=== PATIENT | female | born 1970 | race Caucasian/White ===

== ENCOUNTER 2017-11-22 06:07 | Inpatient (IN) | payer OTHER ==
[~2017-11-22 06:07] MED LIST: CEFAZOLIN 2 GM/50 ML (PMX) 50 ML IVPB
[2017-11-22] MEDS ORDERED: MIDAZOLAM 1 MG/ML 2 ML INJ (06:24)
[2017-11-22] MEDS ORDERED: GLYCOPYRROLATE 0.4 MG INJ (06:24)
[2017-11-22] MEDS ORDERED: NEOSTIGMINE 3 MG/3 ML SYRINGE (06:24)
[2017-11-22] MEDS ORDERED: ROCURONIUM 50 MG INJ (06:24)
[2017-11-22] MEDS ORDERED: FENTAnyl 50 MCG/ML VIAL ×2 (06:24→10:22)
[2017-11-22] MEDS ORDERED: PROPOFOL 20 ML (06:24)
[2017-11-22] MEDS ORDERED: LIDOCAINE 2% (SDV) 5 ML INJ (06:24)
[2017-11-22] MEDS ORDERED: NALOXONE (0.4 MG/ML) INJ IV (06:30)
[2017-11-22] MEDS ORDERED: morphine SULFATE/PF (10 MG/10 ML) INJ (06:31)
[2017-11-22] MEDS ORDERED: ONDANSETRON 4 MG INJ (06:32)
[2017-11-22] MEDS ORDERED: BUPIVACAINE 0.75%/DEXT (SPINAL) 2 ML INJ (06:32)
[2017-11-22] MEDS ORDERED: DEXAMETHASONE 4 MG/ML 1 ML INJ (06:32)
[2017-11-22] MEDS ORDERED: BUPIVACAINE 0.5%/EPI (SDV) 30 ML INJ (07:27)
[2017-11-22] MEDS ORDERED: LIDOCAINE 1%/EPI 30 ML INJ (07:27)
[2017-11-22] MEDS: LIDOCAINE 1%/EPI 30 ML INJ INJ (07:30)
[2017-11-22] MEDS ORDERED: SUCCINYLCHOLINE CHLORIDE 100 MG/5 ML SYG IV (07:47)
[2017-11-22] MEDS ORDERED: CEFAZOLIN 1 GM INJ (08:52)
[2017-11-22] MEDS ORDERED: FUROSEMIDE 20 MG INJ (11:33)
[2017-11-22] MEDS ORDERED: SUGAMMADEX SODIUM 200 MG/2 ML VIAL IV (11:36)
[2017-11-22] MEDS ORDERED: DIPHENHYDRAMINE 50 MG CAP PO (12:30)
[2017-11-22] MEDS ORDERED: HYDROCODONE/APAP (5/325) TAB PO (12:30)
[2017-11-22] MEDS ORDERED: ZOLPIDEM 5 MG TAB PO (12:30)
[2017-11-22] MEDS ORDERED: ONDANSETRON 4 MG INJ IV (12:30)
[2017-11-22] MEDS ORDERED: HYDROmorphONE 1 MG/5 ML IV SYRINGE IV (13:18)
[2017-11-22] MEDS ORDERED: KETOROLAC 15 MG INJ (13:18)
[2017-11-22] MEDS ORDERED: KETOROLAC 30 MG INJ (13:23)
[2017-11-22] MEDS: HYDROCODONE/APAP (5/325) TAB PO (13:27)
[2017-11-22] MEDS: KETOROLAC 30 MG INJ IV ×2 (13:27→23:50)
[2017-11-22 13:43] LABS: ADD MAN DIFF? NO
[2017-11-22 13:46] LABS: BASOPHILS % 0.1 % (0.0-2.0); EOSINOPHILS % 0.1 % (0.0-7.0); HEMATOCRIT 37.1 % (37.0-47.0); HEMOGLOBIN 12.4 g/dl (12.0-16.0); LYMPHOCYTES # 1.1 10^3/ul (0.8-2.9); LYMPHOCYTES % 7.6 % (15.0-51.0); MEAN CORPUSCULAR HEMOGLOBIN 28.6 pg (29.0-33.0); MEAN CORPUSCULAR HGB CONC 33.4 g/dl (32.0-37.0); MEAN CORPUSCULAR VOLUME 85.7 fl (82.0-101.0); MEAN PLATELET VOLUME 10.6 fl (7.4-10.4); MONOCYTE # 0.2 10^3/ul (0.3-0.9); MONOCYTES % 1.2 % (0.0-11.0); NEUTROPHIL # 13.5 10^3/ul (1.6-7.5); NEUTROPHILS % 90.5 % (39.0-77.0); PLATELET COUNT 243 10^3/UL (140-415); RED BLOOD COUNT 4.33 10^6/ul (4.20-5.40); RED CELL DISTRIBUTION WIDTH 13.1 % (11.5-14.5)
[2017-11-22 13:54] LABS: ANION GAP 14 (8-16); BLOOD UREA NITROGEN 9 mg/dl (7-20); CALCIUM 8.6 mg/dl (8.4-10.2); CARBON DIOXIDE 27 mmol/L (21-31); CHLORIDE 104 mmol/L (97-110); CREATININE 0.57 mg/dl (0.44-1.00); GLUCOSE 175 mg/dl (70-220); POTASSIUM 3.3 mmol/L (3.5-5.1); SODIUM 142 mmol/L (135-144)
[2017-11-22 14:00] LABS: HOLD TRANSMISSIONS 1
[2017-11-22 14:02] LABS: WHITE BLOOD COUNT 14.9 10^3/ul (4.8-10.8)
[2017-11-22] MEDS: LACTATED RINGER'S 1,000 ML IV ×2 (15:04→22:00)
[2017-11-22] MEDS ORDERED: ENOXAPARIN 40 MG/0.4 ML SYG SC (15:30)
[2017-11-22] MEDS: PIPER-TAZO 3.375 GM IV (PMX) 100 ML IVPB ×2 (17:47→23:48)
[2017-11-22] MEDS: VANCOMYCIN 750 MG in SOD CHLORIDE 0.9% 150 ML IVPB (18:23)
[2017-11-22] MEDS: METOCLOPRAMIDE 10 MG TAB PO ×2 (18:23→23:48)
[2017-11-22] MEDS: HYDROmorphONE 1 MG/ML SYG IV (18:36)
[2017-11-22] MEDS: VANCOMYCIN 1 GM 250 ML IVPB (20:41)
[2017-11-23] MEDS: LACTATED RINGER'S 1,000 ML IV (03:32)
[2017-11-23 05:39] LABS: ADD MAN DIFF? NO
[2017-11-23 05:48] LABS: WHITE BLOOD COUNT 10.7 10^3/ul (4.8-10.8)
[2017-11-23 05:48] LABS: BASOPHILS % 0.1 % (0.0-2.0); HEMATOCRIT 29.3 % (37.0-47.0); HEMOGLOBIN 9.6 g/dl (12.0-16.0); LYMPHOCYTES # 2.2 10^3/ul (0.8-2.9); LYMPHOCYTES % 20.4 % (15.0-51.0); MEAN CORPUSCULAR HEMOGLOBIN 28.3 pg (29.0-33.0); MEAN CORPUSCULAR HGB CONC 32.8 g/dl (32.0-37.0); MEAN CORPUSCULAR VOLUME 86.4 fl (82.0-101.0); MEAN PLATELET VOLUME 10.8 fl (7.4-10.4); MONOCYTE # 0.8 10^3/ul (0.3-0.9); NEUTROPHIL # 7.7 10^3/ul (1.6-7.5); PLATELET COUNT 233 10^3/UL (140-415); RED BLOOD COUNT 3.39 10^6/ul (4.20-5.40); RED CELL DISTRIBUTION WIDTH 13.4 % (11.5-14.5)
[2017-11-23 06:07] LABS: ANION GAP 9 (8-16); BLOOD UREA NITROGEN 10 mg/dl (7-20); CARBON DIOXIDE 29 mmol/L (21-31); CHLORIDE 106 mmol/L (97-110); CREATININE 0.64 mg/dl (0.44-1.00); SODIUM 140 mmol/L (135-144)
[2017-11-23] MEDS: METOCLOPRAMIDE 10 MG TAB PO ×3 (06:25→17:50)
[2017-11-23] MEDS: LEVOTHYROXINE 50 MCG TAB PO (06:25)
[2017-11-23] MEDS: PIPER-TAZO 3.375 GM IV (PMX) 100 ML IVPB ×3 (06:26→17:49)
[2017-11-23] MEDS: KETOROLAC 30 MG INJ IV ×3 (06:33→17:50)
[2017-11-23] MEDS: POTASSIUM CHLORIDE (SR) 10 MEQ TAB PO ×2 (09:23→20:52)
[2017-11-23] MEDS: VANCOMYCIN 1 GM 250 ML IVPB ×2 (09:23→20:55)
[2017-11-23] MEDS: ENOXAPARIN 40 MG/0.4 ML SYG SC (09:28)
[2017-11-23] MEDS ORDERED: BISACODYL (EC) 5 MG TAB PO (09:30)
[2017-11-23] MEDS: RANITIDINE 50 MG in SOD CHLORIDE 0.9% 50 ML IVPB ×2 (12:48→20:52)
[2017-11-23] MEDS: BISACODYL (EC) 5 MG TAB PO (20:52)
[2017-11-24] MEDS: METOCLOPRAMIDE 10 MG TAB PO ×4 (00:16→17:48)
[2017-11-24] MEDS: KETOROLAC 30 MG INJ IV ×4 (00:24→17:48)
[2017-11-24] MEDS: PIPER-TAZO 3.375 GM IV (PMX) 100 ML IVPB ×4 (00:25→17:47)
[2017-11-24] MEDS: LEVOTHYROXINE 50 MCG TAB PO (06:40)
[2017-11-24 08:41] LABS: ADD MAN DIFF? NO
[2017-11-24] MEDS: RANITIDINE 50 MG in SOD CHLORIDE 0.9% 50 ML IVPB ×2 (09:00→20:35)
[2017-11-24 09:06] LABS: WHITE BLOOD COUNT 8.5 10^3/ul (4.8-10.8)
[2017-11-24 09:06] LABS: BASOPHILS % 0.4 % (0.0-2.0); EOSINOPHILS # 0.2 10^3/ul (0.0-0.5); EOSINOPHILS % 1.9 % (0.0-7.0); HEMATOCRIT 30.3 % (37.0-47.0); HEMOGLOBIN 9.5 g/dl (12.0-16.0); LYMPHOCYTES # 2.8 10^3/ul (0.8-2.9); LYMPHOCYTES % 33.2 % (15.0-51.0); MEAN CORPUSCULAR HEMOGLOBIN 27.8 pg (29.0-33.0); MEAN CORPUSCULAR HGB CONC 31.4 g/dl (32.0-37.0); MEAN CORPUSCULAR VOLUME 88.6 fl (82.0-101.0); MEAN PLATELET VOLUME 11.5 fl (7.4-10.4); MONOCYTE # 0.6 10^3/ul (0.3-0.9); NEUTROPHIL # 4.9 10^3/ul (1.6-7.5); NEUTROPHILS % 57.1 % (39.0-77.0); PLATELET COUNT 202 10^3/UL (140-415); RED BLOOD COUNT 3.42 10^6/ul (4.20-5.40); RED CELL DISTRIBUTION WIDTH 13.8 % (11.5-14.5)
[2017-11-24 09:11] LABS: ANION GAP 9 (8-16); CARBON DIOXIDE 27 mmol/L (21-31); CHLORIDE 110 mmol/L (97-110); POTASSIUM 4.1 mmol/L (3.5-5.1); SODIUM 142 mmol/L (135-144)
[2017-11-24 09:17] LABS: POSITIVE DIFF @See below
[2017-11-24 09:24] LABS: VANCOMYCIN,TROUGH 9.2 ug/ml (10.0-20.0)
[2017-11-24] MEDS: VANCOMYCIN 1 GM 250 ML IVPB (11:30)
[2017-11-24] MEDS: HYDROCODONE/APAP (5/325) TAB PO ×2 (13:37→20:36)
[2017-11-24] MEDS: VANCOMYCIN 1.25 GM in SOD CHLORIDE 0.9% 250 ML IVPB (21:49)
[2017-11-25] MEDS: METOCLOPRAMIDE 10 MG TAB PO ×3 (00:27→12:13)
[2017-11-25] MEDS: PIPER-TAZO 3.375 GM IV (PMX) 100 ML IVPB ×2 (01:10→05:22)
[2017-11-25] MEDS: KETOROLAC 30 MG INJ IV ×3 (05:22→12:13)
[2017-11-25] MEDS: LEVOTHYROXINE 50 MCG TAB PO (07:43)
[2017-11-25] MEDS: RANITIDINE 50 MG in SOD CHLORIDE 0.9% 50 ML IVPB (08:44)
[2017-11-25] MEDS: HYDROCODONE/APAP (5/325) TAB PO (09:34)
[2017-11-25] MEDS: VANCOMYCIN 1.25 GM in SOD CHLORIDE 0.9% 250 ML IVPB (09:34)
== END 2017-11-25 15:35 | disposition home or self-care (01) | DRG 742 ==
LOC: REC 06:07 → PP2 14:23
PROC: 0UT90ZZ Resection of Uterus, Open Approach (ICD-10-PCS; principal; 2017-11-22 07:30)
PROC: 0UT50ZZ Resection of Right Fallopian Tube, Open Approach (ICD-10-PCS; 2017-11-22 07:30)
PROC: 0UT00ZZ Resection of Right Ovary, Open Approach (ICD-10-PCS; 2017-11-22 07:30)
PROC: 0UT60ZZ Resection of Left Fallopian Tube, Open Approach (ICD-10-PCS; 2017-11-22 07:30)
PROC: 0UB97ZZ Excision of Uterus, Via Natural or Artificial Opening (ICD-10-PCS; 2017-11-22 07:30)
DX: D25.9 Leiomyoma of uterus, unspecified (principal); Z68.41 Body mass index [BMI] 40.0-44.9, adult; N92.1 Excessive and frequent menstruation with irregular cycle; R10.2 Pelvic and perineal pain; N70.11 Chronic salpingitis; E66.01 Morbid (severe) obesity due to excess calories
CPT/HCPCS: 80048; 80051; 80202; 82565; 84520; 85025; 86850; 86900; 86901; 86920; 87086; 88305; 93005